=== PATIENT | female | born 1945 | race Caucasian/White ===

== ENCOUNTER 2017-10-05 03:56 | Emergency (ER) | payer OTHER ==
[~2017-10-05] VITALS: Ht 154.9 cm; Wt 82.0 kg
[~2017-10-05 03:56] MED LIST: BUDE10.2; LEVO75TA5 PO; TIOT18CA
[2017-10-05 03:57] VITALS: BP 154/81
== END 2017-10-05 05:41 | disposition home or self-care (01) ==
LOC: ED 05:24
DX: S49.91XA Unspecified injury of right shoulder and upper arm, initial encounter (principal); S00.511A Abrasion of lip, initial encounter; I10 Essential (primary) hypertension; E03.9 Hypothyroidism, unspecified; W01.0XXA Fall on same level from slipping, tripping and stumbling without subsequent striking against object, initial encounter; Y93.89 Activity, other specified; Y92.89 Other specified places as the place of occurrence of the external cause; Y99.8 Other external cause status
CPT/HCPCS: 29105; 99284

== ENCOUNTER 2018-05-10 09:28 | Emergency (ER) | payer OTHER ==
[~2018-05-10] VITALS: Ht 154.9 cm; Wt 82.5 kg
[2018-05-10 09:33] VITALS: BP 100/58
[2018-05-10] MEDS ORDERED: HYDR-3240 PO (10:07)
[2018-05-10] MEDS ORDERED: DILT300C32 PO (10:07)
[2018-05-10] MEDS ORDERED: ALBU0.63 NEB (10:08)
[2018-05-10] MEDS ORDERED: ASPI-515 PO (10:08)
[2018-05-10] MEDS ORDERED: PREG25CA PO (10:08)
[2018-05-10] MEDS ORDERED: TIOT4MIS3 INH (10:09)
[2018-05-10] MEDS ORDERED: HYDROcodone/APAP 5/325 TABLET ONE (10:17)
[2018-05-10] MEDS ORDERED: HYDROcodone/APAP 5/325 TABLET PO PRN (10:30)
[2018-05-10] MEDS ORDERED: HYDR-3653 PO (12:03)
== END 2018-05-10 12:07 | disposition home or self-care (01) ==
LOC: ED 12:00
DX: S20.212A Contusion of left front wall of thorax, initial encounter (principal); M25.461 Effusion, right knee; M54.9 Dorsalgia, unspecified; I48.91 Unspecified atrial fibrillation; I10 Essential (primary) hypertension; E03.9 Hypothyroidism, unspecified; Z90.710 Acquired absence of both cervix and uterus; Z90.49 Acquired absence of other specified parts of digestive tract; J44.9 Chronic obstructive pulmonary disease, unspecified; Z88.8 Allergy status to other drugs, medicaments and biological substances; Z88.5 Allergy status to narcotic agent; W01.0XXA Fall on same level from slipping, tripping and stumbling without subsequent striking against object, initial encounter; Y93.89 Activity, other specified; Y92.009 Unspecified place in unspecified non-institutional (private) residence as the place of occurrence of the external cause; Y99.8 Other external cause status
CPT/HCPCS: 71046; 99284